=== PATIENT | male | born 1940 | race Caucasian/White ===

== ENCOUNTER 2017-03-21 14:31 | Emergency (ER) | payer MEDICARE ==
--- NOTE | ~2017-03-21 | HP ---
History And Physical [id number] [place]. [address] NAME: DOUG CAMARILLO : 40 STATUS : ADM IN [facility]#: [id number] AGE: 76 ADM/REG DATE : 03/21/17 MR#: [id number] REPORT SERV DATE: 03/22/17 DICTATED BY: NAVA LEON JR. DATE: 03/21/17 REPORT STATUS : Draft TRANSCRIBED BY: MODL DATE: 03/21/17 DATE OF ADMISSION: 03/21/2017 CHIEF COMPLAINT: Two to three weeks history of increasing shortness of breath, peripheral edema, weakness, and chest pain. HISTORY OF PRESENT ILLNESS: A 76-year-old white male with multiple medical problems, reports to the emergency room today with shortness of breath, chest pain, and increasing edema of a few weeks' duration. Baseline ejection fraction most recently in August of last year 50%, but there is a history of an ejection fraction as low as 35% in the past. He likely has mixed systolic and diastolic dysfunction. His BNP is at 1452 today. Chest x-ray is read as clear lungs, but he has prominent rales on exam. He sees Dr. Hansen for atrial tachyarrhythmias. He has had atrial fibrillation. He has had a DC cardioversion. He is on chronic Coumadin anticoagulation with therapeutic INR. He is compliant with his Coumadin and never misses a dose. He has some chest pain but no acute EKG changes other than new atrial atypical flutter. His troponin is 0.02. There is history of a coronary stent. He has conduction system disease with a history of first-degree AV block, right bundle- branch block, and left anterior fascicular block. He may be heading for a backup permanent pacemaker insertion. Other medical problems include chronic kidney disease, normocytic anemia, and diabetes mellitus. SOCIAL HISTORY: . Supportive family. No tobacco, alcohol, or illicit drugs. PAST MEDICAL HISTORY: Kidney stones, obstructive sleep apnea with compliance with CPAP, history of a TIA, and high CHADS score. FAMILY HISTORY: Noncontributory. ALLERGIES: NO KNOWN DRUG ALLERGIES. MEDICATIONS: Home medication list is reviewed. PHYSICAL EXAMINATION: VITAL SIGNS: BP: 136/68, PULSE: 56 and irregular. Respirations: 18 and afebrile. Room air saturation 94%. HEENT: No xanthelasma. NECK: No JVD at 30 degrees, no thyromegaly, no carotid bruit. LUNGS: Bibasilar rales. No use of accessory muscles. No wheezes. History And Physical [address] [place]. [address] NAME: DOUG CAMARILLO : 40 STATUS : ADM IN [facility]#: [id number] AGE: 76 ADM/REG DATE : 03/21/17 MR#: [id number] REPORT SERV DATE: 03/22/17 DICTATED BY: NAVA LEON JR. DATE: 03/21/17 REPORT STATUS : Draft TRANSCRIBED BY: SURESH DATE: 03/21/17 COR: Heart tones are diminished. No significant murmur, gallop, or rub. Increased pulmonic component of second heart sound. ABD: Soft, nontender, no hepatosplenomegaly, no mass. EXT: Bilateral pitting edema. MS: Back without spine or costovertebral angle tenderness. NEURO: Symmetric findings. IMPRESSION: Suspect deterioration over the past two to three weeks secondary to rhythm change. New atypical atrial flutter. History of previous cardioversions of atrial fibrillation, etc. Baseline conduction system disease, Dr. Hansen. INR is 3.4 today. He has been compliant with his Coumadin for several weeks at least. Chest pain with a troponin of 0.[address] changes on EKG. History of previous coronary stent. Chronic kidney disease. Normocytic anemia. 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 Immediate treatment will include intravenous loop diuretic following laboratory test and arrange for 1300 DC cardioversion tomorrow. Procedure discussed with the patient. All questions are answered. DINORA/SURESH Nava Leon Jr., M.D. / [id number] CC: Kenisha Chau
--- NOTE | ~2017-03-21 | OP ---
Record Of Operation [facility] [address] [place]. [address] NAME: XAVIER CAMARILLO : 40 STATUS : ADM IN [facility]#: [id number] AGE: 76 ADM/REG DATE : 03/21/17 MR#: [id number] REPORT SERV DATE: 03/22/17 DICTATED BY: XAVIER LEARY DATE: 03/22/17 REPORT STATUS : Draft TRANSCRIBED BY: MODL DATE: 03/22/17 DATE OF PROCEDURE: 03/22/2017 This is a cardioversion report. INDICATIONS: Atrial fibrillation. PROCEDURE DESCRIPTION: The patient has been therapeutic on Coumadin for months prior to this procedure. He is admitted to the hospital with congestive heart failure and atrial fibrillation, and is recommended for cardioversion. After informed consent, the patient was sedated with propofol by the anesthesia department. A single 200-joule biphasic synchronized defibrillation was delivered. Atrial fibrillation converted to sinus bradycardia/second degree AV block type 1. There were no immediate complications. MARIO/SURESH Xavier Leary M.D. / [id number] CC: Kenisha Chau [place]
--- NOTE | ~2017-03-21 | DS ---
Discharge Summary [facility] [address] [place]. [address] NAME: DOUG CAMARILLO : 40 STATUS : DIS IN PAT#: [id number] AGE: 76 ADM/REG DATE : 03/21/17 MR#: [id number] REPORT SERV DATE: 04/02/17 DICTATED BY: LEANNE FERNANDEZ DATE: 04/01/17 REPORT STATUS : Draft TRANSCRIBED BY: SURESH DATE: 04/01/17 Data Collection from hospitalization DISCHARGE DIAGNOSES: 1. Atrial flutter. 2. Diastolic heart failure. 3. Mitral regurgitation. 4. Obstructive sleep apnea. 5. History of transient ischemic attack. 6. History of kidney stones. PROCEDURES: Cardioversion on 03/22/2017. MEDICATIONS: Aspirin 81 mg every evening; Lasix 40 mg daily; Neurontin 900 mg daily; [place] 5/325 one tablet every six hours as needed; Lantus 16 units subcutaneously at bedtime; Imdur 15 mg every evening; Hyzaar one tablet daily; Glucophage 1000 mg twice a day; multivitamins with minerals one tablet every morning; Aleve 440 mg every eight hours; fish oil 1000 mg twice a day; Klor-Con 10 mEq daily; Zocor 40 mg at bedtime; Betapace 40 mg every 12 hours; Anoro Ellipta one inhalation daily as instructed; Supartz one injection every two weeks as instructed; Coumadin 2.5 mg on Tuesday, Tuesday, Tuesday, , Tuesday and 5 mg on Wednesdays and Saturdays; and Ambien 5 mg at bedtime as needed. CONDITION AT DISCHARGE: Stable. DISPOSITION: The patient was discharged home on a low-sodium, 1800-calorie diabetic diet with activities as instructed. He would follow up with me five weeks following discharge. He would follow up with Dr. Rey Roman two weeks following discharge. HOSPITAL COURSE: This is a 76-year-old man who has multiple medical problems. He reported to the emergency room on the day of this admission with shortness of breath, chest pain, and increasing edema of a few weeks duration. Baseline ejection fraction was most recently in August of last year was 50%, but there is a history of an ejection fraction as low as 35% in the past. He likely has mixed systolic and diastolic dysfunction. BNP was 1452 on the day of admission. Chest x-ray revealed clear lungs, but there are prominent rales on exam. He does see Dr. Hansen for atrial tachyarrhythmias. He has had atrial fibrillation and had undergone DC cardioversion. He is on chronic Coumadin anticoagulation with therapeutic INR. He is compliant with his Coumadin and never misses a dose. He has had some chest pain, but no acute EKG changes other than new atrial atypical flatter. Troponin was 0.02. He has conduction system disease with a history of first-degree AV block, right bundle-branch block, and left anterior fascicular block. He may be heading for a backup permanent pacemaker insertion. He was admitted to the hospital at this time for further evaluation and treatment. Upon admission, it was suspected that he had deterioration over the past two to three weeks secondary to rhythm change. He had new atypical atrial flutter. He has been compliant with his Coumadin over the last several weeks at least. Immediate treatment was going to include intravenous loop diuretics followed by lab tests and we would arrange for DC cardioversion the following day. The following day, the patient underwent cardioversion by Dr. Park Discharge Summary [address] [address] NAME: DOUG CAMARILLO : 40 STATUS : DIS IN PAT#: [id number] AGE: 76 ADM/REG DATE : 03/21/17 MR#: [id number] REPORT SERV DATE: 04/02/17 DICTATED BY: LEANNE FERNANDEZ DATE: 04/01/17 REPORT STATUS : Draft TRANSCRIBED BY: MODHillary DATE: 04/01/17 Toni. Atrial fibrillation converted to sinus bradycardia/second-degree AV block type 1. There were no immediate complications. On 03/23/2017, he had no palpitations. He was in a normal sinus rhythm. INR level was therapeutic. He was going to be changed back to Bumex. Discharge planning was performed. On 03/24/2017, he had no pain or shortness of breath. He had trace edema. He remained in a normal sinus rhythm. INR level was 2.6. Discharge instructions were given. Due to his improved and stable condition, he was discharged home with the above-stated instructions. Information collected by: La Nena Alexis I submit the above information as my discharge summary. BATSHEVA/MODL Leanne Fernandez M.D. / [id number] CC: Kenisha Chau [place]
[2017-03-21 13:02] LABS: BASOPHILS 0.6 %; BASOPHILS ABSOLUTE 0.04 10/3/uL (0.0-0.16); EOSINOPHILS 3.1 %; EOSINOPHILS ABSOLUTE 0.21 10/3/uL (0.0-0.53); HEMOGLOBIN 10.7 g/dL (13.6-17.8); IMMATURE GRANULOCYTES 0.1 %; IMMATURE GRANULOCYTES ABSOLUTE 0.01 10/3/uL (0.0-0.11); LYMPHOCYTES 11.7 %; MEAN CORPUS HGB CONC 31.8 g/dL (32.0-36.0); MEAN CORPUSCULAR HEMOGLOB 28.9 pg (26.0-34.0); MEAN CORPUSCULAR VOLUME 90.8 fL (80-100); MEAN PLATELET VOLUME 9.8 fL (9.2-13.0); MONOCYTES 8.2 %; MONOCYTES ABSOLUTE 0.56 10/3/uL (0.21-1.20); NEUTROPHILS 76.3 %; NEUTROPHILS ABSOLUTE 5.24 10/3/uL (2.02-8.40); WHITE BLOOD CELLS 6.9 10/3/uL (4.5-10.5)
[2017-03-21 13:03] LABS: ER CBC TAT 0 Hrs 08 MinsNP; HEMATOCRIT 33.6 % (40.0-51.0); MANUAL DIFF NO %; PLATELET COUNT 336 10/3/uL (150-400)
[2017-03-21 13:12] LABS: INTERNATIONAL NORMAL RATI 3.4 UNITS (-); PARTIAL THROMBO TIME 42.5 SEC (22.5-37.2); PROTIME (NOT ORD) 33.7 SEC (12.0-14.5)
[2017-03-21 13:19] LABS: CALCIUM, SERUM 9.3 MG/DL (8.5-10.4); CHEST PAIN PROFILE TAT 0 Hrs 25 Mins; CHLORIDE, SERUM 107 MMOL/L (96-112); CREATININE 1.57 MG/DL (0.70-1.30); GFR AFRICAN AMERICAN 49 ML/MIN (>=60); GFR NON AFRICAN AMERICAN 42 ML/MIN (>=60); POTASSIUM, SERUM 4.4 MMOL/L (3.5-5.3); SODIUM, SERUM 138 MMOL/L (135-148); TROPONIN I 0.02 NG/ML (<0.05)
[2017-03-21 13:20] LABS: BUN (BLOOD UREA NITROGEN) 33 MG/DL (6-23); CO2 (CARBON DIOXIDE) 24 MMOL/L (24-34); GLUCOSE, SERUM 171 MG/DL (60-99)
[~2017-03-21 14:31] MED LIST: ALLEGRA180 PO; AMB10 PO; AMB5 PO; ASAB PO; B12250T PO; BETAPACE80 PO; C25 PO; C5 PO; CORDARONE PO; COREG3 PO; COREG6 PO; EFFIENT10 PO; ELIQUIS 5 MG TAB5 MG PO; FISH-EPA1000 MG PO; GLUCOPHAGE1000 MG PO; HYZAAR1 TAB PO; IMDUR30 PO; KLOR-CON 1010 MEQ PO; L20 PO; L40 PO; LANTUSCART SC; LIPITOR80 MG PO; MULTIPLE VIT PO; MULTIVIT/MIN PO; NEUR300 PO; NEUR600 PO; NITROSTAT0.4 MG SL; NOVOPEN SQ; TUDORZA PRESS400 MCG INH; ZOCOR40 PO
[2017-03-21] MEDS ORDERED: C25 PO (15:10)
[2017-03-21] MEDS ORDERED: NORCO1 TA1 PO (15:11)
[2017-03-21] MEDS ORDERED: ALEVE220 MG PO (15:11)
[2017-03-21] MEDS ORDERED: [UNRECOGNIZED DRUG - OTHER] INTART (15:18)
[2017-03-21] MEDS ORDERED: ANOROELLIPTA INH (15:24)
[2017-03-22 01:55] LABS: BASOPHILS 0.6 %; BASOPHILS ABSOLUTE 0.03 10/3/uL (0.0-0.16); EOSINOPHILS 3.5 %; EOSINOPHILS ABSOLUTE 0.18 10/3/uL (0.0-0.53); HEMATOCRIT 30.3 % (40.0-51.0); IMMATURE GRANULOCYTES 0.2 %; IMMATURE GRANULOCYTES ABSOLUTE 0.01 10/3/uL (0.0-0.11); LYMPHOCYTES 15.4 %; LYMPHOCYTES ABSOLUTE 0.78 10/3/uL (0.67-4.30); MEAN CORPUSCULAR HEMOGLOB 29.8 pg (26.0-34.0); MEAN CORPUSCULAR VOLUME 90.2 fL (80-100); MEAN PLATELET VOLUME 9.6 fL (9.2-13.0); MONOCYTES 10.4 %; MONOCYTES ABSOLUTE 0.53 10/3/uL (0.21-1.20); NEUTROPHILS 69.9 %; NEUTROPHILS ABSOLUTE 3.55 10/3/uL (2.02-8.40); PLATELET COUNT 283 10/3/uL (150-400); RBC DISTRIBUTION WIDTH 16.4 % (12.0-16.0); RED CELL COUNT 3.36 10/6/uL (4.7-6.1); WHITE BLOOD CELLS 5.1 10/3/uL (4.5-10.5)
[2017-03-22 01:56] LABS: MANUAL DIFF NO %
[2017-03-22 02:02] LABS: INTERNATIONAL NORMAL RATI 3.3 UNITS (-); PROTIME (NOT ORD) 33.6 SEC (12.0-14.5)
[2017-03-22 02:12] LABS: BUN (BLOOD UREA NITROGEN) 35 MG/DL (6-23); CALCIUM, SERUM 8.8 MG/DL (8.5-10.4); CHLORIDE, SERUM 104 MMOL/L (96-112); CO2 (CARBON DIOXIDE) 26 MMOL/L (24-34); CREATININE 1.54 MG/DL (0.70-1.30); GFR AFRICAN AMERICAN 50 ML/MIN (>=60); GFR NON AFRICAN AMERICAN 43 ML/MIN (>=60); GLUCOSE, SERUM 250 MG/DL (60-99); SODIUM, SERUM 140 MMOL/L (135-148); TROPONIN I 0.03 NG/ML (<0.05)
[2017-03-23 05:43] LABS: BASOPHILS 0.8 %; BASOPHILS ABSOLUTE 0.04 10/3/uL (0.0-0.16); EOSINOPHILS 3.9 %; EOSINOPHILS ABSOLUTE 0.19 10/3/uL (0.0-0.53); HEMATOCRIT 30.2 % (40.0-51.0); HEMOGLOBIN 9.8 g/dL (13.6-17.8); IMMATURE GRANULOCYTES 0.2 %; IMMATURE GRANULOCYTES ABSOLUTE 0.01 10/3/uL (0.0-0.11); LYMPHOCYTES ABSOLUTE 0.77 10/3/uL (0.67-4.30); MEAN CORPUS HGB CONC 32.5 g/dL (32.0-36.0); MEAN CORPUSCULAR HEMOGLOB 29.3 pg (26.0-34.0); MEAN CORPUSCULAR VOLUME 90.4 fL (80-100); MEAN PLATELET VOLUME 9.5 fL (9.2-13.0); MONOCYTES ABSOLUTE 0.53 10/3/uL (0.21-1.20); NEUTROPHILS 68.1 %; NEUTROPHILS ABSOLUTE 3.28 10/3/uL (2.02-8.40); PLATELET COUNT 270 10/3/uL (150-400); RBC DISTRIBUTION WIDTH 16.5 % (12.0-16.0); RED CELL COUNT 3.34 10/6/uL (4.7-6.1); WHITE BLOOD CELLS 4.8 10/3/uL (4.5-10.5)
[2017-03-23 05:44] LABS: MANUAL DIFF NO %
[2017-03-23 05:53] LABS: INTERNATIONAL NORMAL RATI 2.8 UNITS (-); PROTIME (NOT ORD) 29.6 SEC (12.0-14.5)
[2017-03-23 05:57] LABS: BUN (BLOOD UREA NITROGEN) 35 MG/DL (6-23); CALCIUM, SERUM 9.1 MG/DL (8.5-10.4); CHLORIDE, SERUM 104 MMOL/L (96-112); CO2 (CARBON DIOXIDE) 28 MMOL/L (24-34); GFR AFRICAN AMERICAN 56 ML/MIN (>=60); GFR NON AFRICAN AMERICAN 48 ML/MIN (>=60); SODIUM, SERUM 139 MMOL/L (135-148)
[2017-03-23 06:00] LABS: GLUCOSE, SERUM 196 MG/DL (60-99)
[2017-03-24 06:56] LABS: INTERNATIONAL NORMAL RATI 2.6 UNITS (-); PROTIME (NOT ORD) 27.8 SEC (12.0-14.5)
[2017-03-24 06:59] LABS: BASOPHILS ABSOLUTE 0.05 10/3/uL (0.0-0.16); EOSINOPHILS 4.8 %; EOSINOPHILS ABSOLUTE 0.24 10/3/uL (0.0-0.53); HEMOGLOBIN 10.8 g/dL (13.6-17.8); LYMPHOCYTES 17.6 %; LYMPHOCYTES ABSOLUTE 0.87 10/3/uL (0.67-4.30); MANUAL DIFF NO %; MEAN CORPUS HGB CONC 32.7 g/dL (32.0-36.0); MEAN CORPUSCULAR HEMOGLOB 29.2 pg (26.0-34.0); MEAN CORPUSCULAR VOLUME 89.2 fL (80-100); MEAN PLATELET VOLUME 9.8 fL (9.2-13.0); MONOCYTES 12.5 %; MONOCYTES ABSOLUTE 0.62 10/3/uL (0.21-1.20); NEUTROPHILS 64.1 %; NEUTROPHILS ABSOLUTE 3.17 10/3/uL (2.02-8.40); PLATELET COUNT 286 10/3/uL (150-400); RBC DISTRIBUTION WIDTH 15.9 % (12.0-16.0)
[2017-03-24 07:02] LABS: BUN (BLOOD UREA NITROGEN) 37 MG/DL (6-23); CALCIUM, SERUM 9.3 MG/DL (8.5-10.4); CHLORIDE, SERUM 101 MMOL/L (96-112); CO2 (CARBON DIOXIDE) 31 MMOL/L (24-34); GFR AFRICAN AMERICAN 56 ML/MIN (>=60); GFR NON AFRICAN AMERICAN 48 ML/MIN (>=60); POTASSIUM, SERUM 3.7 MMOL/L (3.5-5.3); SODIUM, SERUM 140 MMOL/L (135-148)
[2017-03-24 07:06] LABS: GLUCOSE, SERUM 129 MG/DL (60-99)
[2017-06-09] MEDS ORDERED: ALLEGRA180 PO (12:21)
== END 2017-03-24 14:16 | disposition home or self-care (01) ==
LOC: ER 14:31
PROVIDERS: Hospitalist; Internal Medicine Cardiovascular Disease
DX: I13.0 Hypertensive heart and chronic kidney disease with heart failure and stage 1 through stage 4 chronic kidney disease, or unspecified chronic kidney disease (principal); I50.9 Heart failure, unspecified; N18.3 Chronic kidney disease, stage 3 (moderate); I48.92 Unspecified atrial flutter; G47.30 Sleep apnea, unspecified; E11.22 Type 2 diabetes mellitus with diabetic chronic kidney disease; Z79.82 Long term (current) use of aspirin; Z79.84 Long term (current) use of oral hypoglycemic drugs; Z79.4 Long term (current) use of insulin; Z79.01 Long term (current) use of anticoagulants; Z79.891 Long term (current) use of opiate analgesic; Z79.899 Other long term (current) drug therapy
CPT/HCPCS: 71020; 80048; 82962; 83735; 83880; 84484; 85025; 85610; 85730; 92960; 93005; 96374; 99285; A9270-GY; C8929; Q9957